=== PATIENT | male | born 1930 | race Caucasian/White ===

== ENCOUNTER → 2016-08-12 | Outpatient (CLI) | payer MEDICARE, BC | END | disposition home or self-care (01) | LOC: CECH 12:24 | DX: R06.09 Other forms of dyspnea (principal) | CPT/HCPCS: 93306 ==

== ENCOUNTER → 2017-01-10 | Outpatient (CLI) | payer MEDICARE, BC ==
--- NOTE | ~2017-01-10 | CT4 ---
[facility] A Service of [facility] [place] [facility] RADIOLOGY TEXT RESULTS PATIENT: HERNANDO DE LEON [facility] UN[facility] #: [id number] AGE: [address]: Trent Ramires MD SEX: M ORDER DR: [id number] [facility] [address] [place], [place] [address] [id number] O MR#: [id number] Acc #: [id number] NAME: HERNANDO DE LEON : 1930 SEX: M STUDY DATE/TIME: 01/10/2017 15:25 UNIT: [facility] ROOM: STUDY DESCRIPTION: CT Abd and Pelv Wo Cont Attending Physician: Trent Ramires M.D. Referring Physician: Trent Ramires M.D. Ordering Physician: Trent Ramires M.D. Primary Care Physician: Trent Ramires M.D. MEDICAL IMAGING REPORT This report is preliminary unless electronic signature is present EXAM CT of the abdomen and pelvis without contrast. HISTORY Hematuria for 1 month and lower back pain. TECHNIQUE Axial CT images were obtained from the dome of the diaphragm to the symphysis pubis. No oral or intravenous contrast material was administered. This CT exam was performed with one or more of the following radiation dose reduction techniques: Automatic exposure control, adjustment of mA and/or kV according to patient size, and iterative reconstruction. FINDINGS This patient appears to have some chronic scarring at the lung bases bilaterally, right greater than left, this is associated with a small volume of loculated pleural fluid. There is a small hiatal hernia proximal small bowel appears within normal limits. Patient has cholelithiasis. Low-attenuation lesion is seen adjacent to the right lobe of the liver measuring up to about 6.0 x 5.3 cm, it does appear to contain some calcified septa within it. I think that this is arising from the liver rather than from the right kidney, although it is certainly intimately associated with the superior pole of the right kidney. I am not convinced I can see any solid renal masses on either side. Prostate gland is enlarged and contains dystrophic calcifications. I do not see any evidence of hydroureteronephrosis on either side. Adrenal glands appear unremarkable. Pancreas is atrophic. There is atherosclerotic involvement of the abdominal aorta which continues into the iliac vessels. No free fluid or adenopathy is seen within the abdomen or pelvis. Review of bony windows demonstrates an old right eleventh rib fracture. There is also compression deformity noted at [facility]. [facility] A Service of [facility] [place] & [facility] RADIOLOGY TEXT RESULTS PATIENT: HERNANDO DE LEON LOCATION: [facility] : 28 UNIT #: [id number] AGE: [address]: Trent Ramires MD SEX: M ORDER DR: T12-L1. This is age indeterminate but certainly could be chronic. Please correlate with any recent history of trauma as well as point tenderness. IMPRESSION 1. Patient has punctate nonobstructing stones within both kidneys. No distal ureteral or bladder stones are seen. 2. Low attenuation structure with calcified septa is seen within the right upper quadrant. I actually think it may be arising from the right lobe of the liver, athough it is also intimately associated with superior pole of the right kidney. Multiphase MRI could be considered for additional evaluation especially given history of hematuria. Patient is also noted to have a large simple-appearing cyst arising from the superior pole of the left kidney. 3. Compression deformity noted at T12 and L1 age indeterminate. Correlation with history of point tenderness is suggested. 4. Chronic scarring identified at the lung bases bilaterally right greater than left with some loculated pleural fluid likely chronic identified at the right lung base. 5. Cholelithiasis. 6. Prostatic enlargement. STAT * RESULT Dictated by... Oliva Oviedo M.D. THIS IS AN ELECTRONICALLY VERIFIED REPORT Oliva Oviedo M.D. at 01/15/2017 8:00 AM AFF/aa TD: 01/14/2017 12:16 JOB #: [id number] MEDICAL IMAGING REPORT Page 1 of 1 COPY
== END | disposition home or self-care (01) ==
LOC: CCAT 13:28
DX: R31.29 Other microscopic hematuria (principal); N20.0 Calculus of kidney; J98.4 Other disorders of lung; K80.20 Calculus of gallbladder without cholecystitis without obstruction; N40.0 Benign prostatic hyperplasia without lower urinary tract symptoms
CPT/HCPCS: 74176

== ENCOUNTER → 2017-01-24 | Outpatient (CLI) | payer MEDICARE, BC ==
--- NOTE | ~2017-01-24 | MR2 ---
[facility] A Service of [facility] RADIOLOGY TEXT RESULTS PATIENT: HERNANDO DE LEON LOCATION: [facility] : 28 UNIT #: [id number] AGE: [address]: Trent Ramires MD SEX: M ORDER DR: [id number] [facility] [address] [place], [place] [address] [id number] O MR#: [id number] Acc #: [id number] NAME: HERNANDO DE LEON : 1930 SEX: M STUDY DATE/TIME: 01/24/2017 14:44 UNIT: [facility] ROOM: STUDY DESCRIPTION: MR Abdomen WWo Cont Attending Physician: Trent Ramires M.D. Referring Physician: Trent Ramires M.D. Ordering Physician: Trent Ramires M.D. Primary Care Physician: Trent Ramires M.D. MRI CENTER REPORT This report is preliminary unless electronic signature is present. EXAM MRI abdomen with and without contrast INDICATIONS Indeterminate right upper quadrant abdominal mass, possibly from the liver or possibly from the right kidney seen on a previous CT. Patient reports two episodes of hematuria over the past 2 months. PROCEDURE Multiplanar, multisequence MR imaging of the abdomen prior to and following 12 mL of MultiHance comparison CT from 01/10/2017 FINDINGS ABDOMEN WITHOUT CONTRAST: The liver has normal size and morphology and contains a few small benign cysts. There is a dominant lesion partially exophytic from the posterior right hepatic lobe. This lesion measures 6.3 cm and has a cystic appearance. It does have a sediment level and is significantly T1 hyperintense suggesting proteinaceous or hemorrhagic material. There is a dominant simple cyst in the upper pole of the left kidney that measures 6.2 cm. The spleen adrenal glands pancreas gallbladder and bowel loops have normal signal. ABDOMEN WITH CONTRAST: Postcontrast sequences are mildly motion degraded. The liver lesion of interest shows no appreciable enhancement. There is no enhancement seen elsewhere in the abdomen. IMPRESSION 1. Dominant 6.3 cm lesion partially exophytic posterior right hepatic lobe shows features most in keeping with a cyst complicated by STS. [facility] A Service of [facility] RADIOLOGY TEXT RESULTS PATIENT: HERNANDO DE LEON [facility] : 29 UNIT #: [id number] AGE: [address]: Trent Ramires MD SEX: M ORDER DR: internal proteinaceous material or hemorrhage. It shows no appreciable enhancement. There are also a few other smaller benign cysts in the liver. 2. A 6.2 cm benign cyst exophytic from the upper pole of the left kidney Dictated by... Dong Lamar M.D. THIS IS AN ELECTRONICALLY VERIFIED REPORT Dong Lamar M.D. at 01/31/2017 2:39 PM OLIVE/kimi TD: 01/30/2017 14:55 JOB #: [id number] MRI CENTER REPORT Page 1 of 1 COPY
[2017-01-24 14:31] LABS: POC - CREATININE 1.03 mg/dL (0.64-1.27); POC - GFR >60.0 mL/min (>60)
== END | disposition home or self-care (01) ==
LOC: CMRI 13:31
PROVIDERS: Internal Medicine
DX: R31.9 Hematuria, unspecified (principal); K76.89 Other specified diseases of liver; N28.1 Cyst of kidney, acquired
CPT/HCPCS: 74183; 82565; A9577